=== PATIENT | female | born 1990 | race Caucasian/White ===

== ENCOUNTER 2016-09-27 02:00 | Inpatient (IN) | payer OTHER ==
[2016-09-27] MEDS ORDERED: IV START KIT ONE ×2 (02:30→02:39)
[2016-09-27] MEDS ORDERED: SODIUM CHLORIDE 0.9% FLUSH 10 ML ONE (02:31)
[2016-09-27] MEDS ORDERED: OXYTOCIN IN LR 500 ML IV ONE (02:33)
[2016-09-27] MEDS ORDERED: LACTATED RINGERS 1,000 ML IV PRN (02:33)
[2016-09-27] MEDS ORDERED: OXYTOCIN 10 UNITS/ML VIAL ONE (02:39)
[2016-09-27] MEDS ORDERED: MINERAL OIL 25 ML BOT ONE (02:39)
[2016-09-27] MEDS ORDERED: PUMP TUBING ONE (02:40)
[2016-09-27] MEDS ORDERED: LIDOCAINE 1% (PRES FREE) 30 ML VIAL ONE (02:40)
[2016-09-27] MEDS ORDERED: EPIDURAL PUMP SET ONE (02:40)
[2016-09-27] MEDS ORDERED: LIDOCAINE Viscous 2% 15 ML UDCUP ONE (02:40)
[2016-09-27] MEDS ORDERED: FENTANYL/ROPIVACAINE EPIDURAL 0 ML EP ONE (02:40)
[2016-09-27] MEDS ORDERED: CLINDAMYCIN 900 MG PREMIX 0 ML IV ONE (02:41)
[2016-09-27] MEDS ORDERED: LACTATED RINGERS 1,000 ML IV SCH (02:45)
[2016-09-27] MEDS ORDERED: CLINDAMYCIN 900 MG PREMIX 900 MG in Premix (D5W) 50 ml 1 EACH IV SCH (03:00)
[2016-09-27 03:20] LABS: HEMATOCRIT 38.9 % (37.0-47.0); HEMOGLOBIN 11.6 gm/l (12.0-16.0); MEAN CELL VOLUME 75.4 fl (81.0-99.0); MEAN CORPUSCULAR HEMOGLOBIN 22.5 pg (27.0-31.0); MEAN CORPUSCULAR HGB CONC 29.8 g/dl (33.0-37.0); RED CELL DISTRIBUTION WIDTH 15.3 % (11.5-14.5)
[2016-09-27] MEDS ORDERED: SENNOSIDES 8.6 MG TABLET PO PRN (04:19)
[2016-09-27] MEDS ORDERED: BENZOCAINE/MENTHOL 60 APPLIC/BOT TP PRN (04:19)
[2016-09-27] MEDS ORDERED: LANOLIN 50 APPLIC/7G TUBE TP PRN (04:19)
[2016-09-27] MEDS ORDERED: IBUPROFEN 800 MG TABLET PO PRN (04:19)
[2016-09-27] MEDS ORDERED: OXYCODONE/ACETAMINOPHEN 5/325 MG TABLET PO PRN (04:19)
--- NOTE | 2016-09-27 04:19 | PCMDEL ---
Delivery Note - Labor 1st stage (hr/min):: 5hr 7min 2nd stage (hr/min):: 6min 3rd stage (hr/min):: 8min Total (hr/min):: 5hr 21min Pushed (hr/min):: 6min - Delivery Delivery (Date): 09/27/16 Delivery (Time): 03:13 Infant Gender: Male Position: OP Operative Delivery:: Vacuum Umbilical Cord: 3 Vessel, Gases Obtained Delayed Cord Clamping:: Not Performed Placenta:: intact EBL:: 100cc Perineum:: intact, 2 x bilateral superficial labial lacerations Suture:: 3-0 chromic Anesthesia/Meds:: lidocaine Length ROM:: 1hr 8min Comments:: delivery note: patient presented to [facility] in active labor, 4cm/80%/-1 station. i was notified that patient was having deep variable decelerations and arrived at 2:52 am. patient was in knee-chest position with oxygen by mask being administered. pelvic exam at 2:54am: cervix 8cm/80%/-1station. informed consent was taken for cesarian section, then patient was moved to operating room for a double set-up. patient was moved to operating room table. cervical exam: anterior lip/100/0 station. cervix reduced manually. position ot, fully dilated. patient pushed effectively and moved vertex to +2 station, attempted vacuum extraction less than 30 seconds but placement was not satisfactory because of op position with deflexion of baby's head. vacuum was removed. patient continued to push effectively and baby delivered spontaneously from direct op position, with easy delivery of shoulders and body. baby suctioned prior to first breath, cord immediately clamped then given to nursing team for care. cord clamped for cord gasses, then cut. cord blood was taken. placenta delivered intact. cervix intact. 2 superficial lacerations on each labia repaired with interrupted 3-0chromic sutures after injecting 1% lidocaine for anesthesia. sponge, needle and instrument count correct. ebl 100cc.
[2016-09-27 04:38] VITALS: BMI 35.9
[2016-09-27] MEDS ORDERED: LIDOCAINE 1% (PRES FREE) 30 ML VIAL SUB-Q ONE (04:44)
[2016-09-27 04:52] LABS: AMPHETAMINES/METHAMPHETAMINES POSITIVE (NEGATIVE); COCAINE NEGATIVE (NEGATIVE); MARIJUANA NEGATIVE (NEGATIVE); METHADONE NEGATIVE (NEGATIVE); OPIATES NEGATIVE (NEGATIVE); TRICYCLIC ANTIDEPRESSANTS NEGATIVE (NEGATIVE)
[2016-09-27] MEDS ORDERED: PNEUMOCOCCAL 23-VAL P-SAC VAC 0.5 ML VIAL IM V ONE (07:22)
--- NOTE | 2016-09-27 08:29 | HP ---
BRIANNA ALARCON CARIDAD : 1990 DATE OF ADMISSION: September 27, 2016 HISTORY OF PRESENT ILLNESS: This is a 26-year-old female who presented to [facility] in active labor. I was called at approximately 2:30 a.m. on September 27, 2016, that patient was experiencing deep variable decelerations and had a category 2 tracing, and I presented to [facility]. On admission exam by the nurse at 2:05 a.m., the patient was 4 to 5 cm dilated, 80% effaced, -1 station. On my arrival, cervical exam was 8 cm, 80% and -1% station. I called for a double setup in the operating room because of the category 2 tracing. Patient was brought to the operating room to attempt a vaginal delivery and if unsuccessful, then would proceed to a section. Patient was receiving oxygen and in the operating room she was fully dilated at 3:07 a.m. and then delivered at 3:13 a.m. OB HISTORY: 5, para 3, 0/1/3, three normal vaginal deliveries, the largest being 8 pounds 11 ounces, and a spontaneous . CARE COMPANION HISTORY: Menarche 12 , monthly periods times five days. Patient did present to my office late in care, and she has irregular menses. She was unsure of exact dating of her last period. PAST MEDICAL HISTORY: She had diabetes and preeclampsia with her first two pregnancies. ALLERGIES: PENICILLIN. FAMILY HISTORY: Positive for twins. SOCIAL HISTORY: Smokes half a pack a day. Alcohol, negative. REVIEW OF SYSTEMS: Patient was admitted in active labor with onset at about 10:00 p.m. and rupture of membranes at 2:05 a.m. in [facility]. PHYSICAL EXAM: HEENT: Normal except for poor dentition. BREAST: History from the chart, the breast exam showed piercings in both nipples. HEART: Regular sinus rhythm. LUNGS: Clear. ABDOMEN: Gravid. Estimated weight was 6.5 to 7 pounds. PELVIC: Exam on my arrival, cervix was 8 cm, 80% effaced and -1 station, vertex presentation with what appeared to be occiput posterior. IMPRESSION: 1. Intrauterine at 34 weeks by her last period date, however, patient never went to have an ultrasound done to confirm dates. GBS status was unknown. 2. Active labor. 3. Category 2 tracing.
--- NOTE | 2016-09-27 08:53 | PDOC44 ---
- Subjective Day: 0 Reports Pain Tolerable, Reports Lochia Light, Denies Nausea, Denies Vomiting, Denies Fever - Objective Temp Pulse Resp BP Pulse Ox 96.8 F 109 20 142/67 100 09/27/16 07:30 09/27/16 07:30 09/27/16 07:00 09/27/16 07:30 09/27/16 03:35 Lab Results 09/27/16 03:00 WBC 23.3 H RBC 5.16 Hgb 11.6 L Hct 38.9 Plt Count 395 09/27/16 09/27/16 03:25 03:00 MCV 75.4 L MCH 22.5 L MCHC 29.8 L RDW 15.3 H U Amphetamin/Meth Scrn Positive H Current Medications Generic Name Dose Route Start Last Admin Trade Name Freq PRN Reason Stop Dose Admin Benzocaine/Menthol 1 applic 09/27/16 04:19 Dermoplast TP PRN PRN Patient Comfort Emollient Ointment 1 applic 09/27/16 04:19 Eqt-X-Iezocs TP PRN PRN sore nipples Ibuprofen 800 mg 09/27/16 04:19 09/27/16 05:33 Motrin PO 800 mg Q8H PRN Administration Pain (Mild) Oxycodone/Acetaminophen 1 - 2 tab 09/27/16 04:19 Percocet 5/325 PO Q4H PRN Pain (Moderate) Senna 17.2 mg 09/27/16 04:19 Senokot PO BEDTIME PRN Comfort Sodium Chloride 10 ml 09/27/16 04:19 Normal Saline 10ml Flush IV PRN PRN IV Flush Sodium Chloride 10 ml 09/27/16 09:00 Normal Saline 10ml Flush IV Q8HR LESVIA - Physical Exam General: Afebrile, Acute Distress Psych/Mental Status: Mood/Affect Appropriate Fundus: Firm, At Umbilicus Abdomen: No Tenderness, No Distention Disposition: Stable (Doing well day 0. director human services consult - late to care, positive drug screen for methamphetamines.)
[2016-09-27] MEDS: IBUPROFEN 800 MG TABLET PO PRN ×2 (12:19→19:24)
[2016-09-28] MEDS: IBUPROFEN 800 MG TABLET PO PRN ×4 (01:24→20:16)
[2016-09-28 06:09] LABS: HEMATOCRIT 31.7 % (37.0-47.0); HEMOGLOBIN 9.6 gm/l (12.0-16.0)
[2016-09-29] MEDS: IBUPROFEN 800 MG TABLET PO PRN ×2 (01:41→08:35)
[2016-09-29 08:34] VITALS: BP 130/85
--- NOTE | 2016-09-29 10:47 | SURGPATH ---
[facility] [address] [place] [id number] Patient Name: ARNOLD ALARCON MR#: [id number] : 1990 Gender: F Specimen #: [id number] Collected: 09/27/2016 Received: 09/28/2016 Reported: 09/29/2016 Submitting Phys: PANTERA HUNTER I Copy To Phys: [facility] ISIDRO COOK Clinical History / Pre-Operative Diagnosis: PRECIPITOUS DELIVERY Specimen Source / Surgical Procedure Performed: PLACENTA Interpretation: PLACENTA, DELIVERY: - LARGE PLACENTA (794 G) AND 3 VESSEL UMBILICAL CORD Electronically Signed Out Satya Torres M.D. Gross Description: The specimen is received in a formalin filled container labeled with the patient's name. A 21 x 1 cm, normally coiled, three vessel umbilical cord inserts 3 cm from the nearest edge of a 19 x 15 by up to 5 cm, 794 g discoid placenta. The surface and membranes are glistening and purple rosen. The membranes insert normally. There is focal pale-rosen subchorionic fibrin. The maternal surface is red-brown spongy without missing cotyledons. Sectioning through the disc reveals no nodule or induration. Gross summary: Causey placenta with subchorionic fibrin. Summary of sections: A-umbilical cord and membranes B-edge section adjacent to umbilical cord insertion site including subchorionic fibrin C-full thickness central section including subchorionic fibrin Carmen Bullock Microscopic Description: The umbilical cord contains three vessels. The membrane roll is unremarkable. Sections of the placental disc reveal mature chorionic villi. The small amount of attached decidua is unremarkable. 1: [id number] O43.93
--- NOTE | 2016-09-29 11:43 | PDOC39B ---
Hospital Course: ADMIT DATE: 09/27/16 DISCHARGE DATE: 09/29/16 ADMISSION DIAGNOSES: Active labor PROCEDURES: vacuum assisted precipitous . HISTORY OF PRESENT ILLNESS: 26 year old G5 T L4 at 33 weeks 3 days presenting with active labor at 4cm. HOSPITAL COURSE: The patient progressed very rapidly with a concerning FH tracing. Pt was brought to OR and preparations were made for a operative delivery. Fortunately pt came to full dilation and had effective pushing. Vaginal of baby boy at 0313hrs on 09/27/16. Pt now requesting dc to home. Her other children are with their dads. [facility] has been involved in plan for this baby. By day of discharge the patient is ambulating, eating, voiding, and passing flatus without difficulty. Pain is controlled and lochia is appropriate. Pt is wanting to go home. - Physical Exam Vital Signs: Temp Pulse Resp BP Pulse Ox 98.1 F 88 18 130/85 100 09/29/16 08:25 09/29/16 08:25 09/29/16 08:25 09/29/16 08:25 09/27/16 03:35 General: Afebrile Psych/Mental Status: Mood/Affect Appropriate, Bonding Well Neurological: Alert, Oriented x 4, Normal Speech Lungs: Clear to Auscultation Bilaterally Cardiovascular: Regular Rate and Rhythm Fundus: Firm, Below Umbilicus Abdomen: Normal Bowel Sounds Lochia: Light Skin: Normal Color, Warm, Dry - Discharge Diagnosis (1) Precipitous delivery Status: AcuteAssessment/Plan: Pt has recovered well after a rapid labor and . Baby boy is doing well. (2) Substance abuse Status: AcuteAssessment/Plan: Meth on UDS. [facility] involved in plan for care. - Discharge Plan Condition: Good Disposition: Home Instruction Forms: Vaginal Discharge Instructions Additional Instructions: Follow up in 6 weeks for your routine visit. Prescriptions: Ibuprofen [Motrin Ib] 200 mg PO Q4-6H PRN #60 tablet PRN Reason: Pain (Moderate) Follow-Up: Sukhwinder Martinez MD [Family Provider] - In 6 weeks
== END 2016-09-29 13:36 | disposition home or self-care (01) | DRG 775 ==
LOC: FBCOUT 02:00 → FBC 02:00 → FBCOUT 02:22
PROVIDERS: ADMIT Obstetrics & Gynecology; ATTEND Obstetrics & Gynecology
PROC: 10E0XZZ Delivery of Products of Conception, External Approach (ICD-10-PCS; principal; 2016-09-27)
PROC: 0HQ9XZZ Repair Perineum Skin, External Approach (ICD-10-PCS; 2016-09-27)
DX: O60.14X0 Preterm labor third trimester with preterm delivery third trimester, not applicable or unspecified (principal); O99.324 Drug use complicating childbirth; F15.20 Other stimulant dependence, uncomplicated; O76 Abnormality in fetal heart rate and rhythm complicating labor and delivery; O66.5 Attempted application of vacuum extractor and forceps; O70.0 First degree perineal laceration during delivery; O62.3 Precipitate labor; O09.43 Supervision of pregnancy with grand multiparity, third trimester; Z3A.33 33 weeks gestation of pregnancy; Z37.0 Single live birth